=== PATIENT | male | born 1955 | race Hispanic/Latino ===

== ENCOUNTER 2019-04-27 01:45 | Emergency (ER) | payer MEDICARE, OTHER ==
[~2019-04-27 01:45] MED LIST: ENAL20TA PO; LEVO25TA54 PO; LEVO500T2 PO; NIFE20CA PO; OMEP20TA25 PO; ONDA4TAB7 PO
[2019-04-27 02:18] LABS: BASOPHILS % (AUTO) 0.8 % (0.0-5.0); LYMPHOCYTES % (AUTO) 22.6 % (21.0-51.0); MEAN CORPUSCULAR HEMOGLOBIN 32.6 pg (27.0-33.0); MEAN CORPUSCULAR HGB CONC 33.8 g/dL (32.0-36.0); MEAN CORPUSCULAR VOLUME 96.5 fL (79-99); MONOCYTES % (AUTO) 11.7 % (3.0-13.0); NEUTROPHILS % (AUTO) 60.9 % (40.0-77.0); PLATELET COUNT (AUTO) 212 K/uL (130-400); RED BLOOD CELL COUNT(AUTO) 4.45 MIL/uL (4.50-6.20); RED CELL DISTRIBUTION WIDTH 12.4 % (11.0-15.5); WHITE BLOOD COUNT (AUTO) 10.5 K/uL (4.8-10.8)
[2019-04-27] MEDS ORDERED: FAMOTIDINE/PF 20 MG/2 ML VIAL IV ONE (02:24)
[2019-04-27] MEDS ORDERED: ONDANSETRON HCL 4 MG/2 ML VIAL ONE (02:24)
[2019-04-27] MEDS ORDERED: DiphenhydrAMINE HCL 50 MG/ML VIAL ONE (02:24)
[2019-04-27] MEDS ORDERED: SODIUM CHLORIDE 0.9% 1000ML 1,000 ML IV ONE (02:25)
[2019-04-27 02:32] LABS: CREATININE 1.2 mg/dL (0.5-1.5); POTASSIUM 3.9 mmol/L (3.5-5.1)
[2019-04-27 02:36] LABS: BILIRUBIN,TOTAL 0.3 mg/dL (0.2-1.0)
[2019-04-27] MEDS ORDERED: LIDOCAINE HCL 2% VISCOUS 15 ML UDCUP ONE (03:00)
[2019-04-27] MEDS ORDERED: MAG HYDROX/AL HYDROX/SIMETH ES 30 ML SUSP UDCUP ONE (03:00)
== END 2019-04-27 04:00 | disposition home or self-care (01) ==
LOC: EDH 01:45
DX: K21.9 Gastro-esophageal reflux disease without esophagitis (principal); J30.2 Other seasonal allergic rhinitis
CPT/HCPCS: 36415; 80053; 83690; 84484; 85025; 93005; 96374; 96375; 99285; J1200; J2405; J3490; J7030

== ENCOUNTER 2021-04-17 06:48 | Observation (INO) | payer MEDICARE, OTHER ==
[~2021-04-17] VITALS: Ht 162.6 cm; Wt 95.6 kg
[~2021-04-17 06:48] MED LIST changes: -ENAL20TA PO; +ENAL20TA18 PO
[2021-04-17] MEDS ORDERED: FENTANYL CITRATE PF 50 MCG/1 ML 2ML VIAL IVP ONE (08:00)
[2021-04-17] MEDS ORDERED: ONDANSETRON 4MG INJ IVP ONE (08:00)
[2021-04-17] MEDS ORDERED: FAMOTIDINE 20MG VIAL IV ONE (08:00)
[2021-04-17] MEDS ORDERED: 0.9%NACL 1000ML 1,000 ML IV ONE (08:00)
[2021-04-17 08:05] LABS: BASOPHILS % (AUTO) 0.4 % (0.0-5.0); EOSINOPHILS % (AUTO) 1.3 % (0.0-8.0); HEMATOCRIT 44.6 % (42-54); LYMPHOCYTES % (AUTO) 16.6 % (21.0-51.0); MEAN CORPUSCULAR HEMOGLOBIN 31.7 pg (27.0-33.0); MEAN CORPUSCULAR HGB CONC 33.9 g/dL (32.0-36.0); MEAN CORPUSCULAR VOLUME 93.5 fL (79-99); MONOCYTES % (AUTO) 10.7 % (3.0-13.0); NEUTROPHILS % (AUTO) 70.8 % (40.0-77.0); PLATELET COUNT (AUTO) 228 K/uL (130-400); RED BLOOD CELL COUNT(AUTO) 4.77 MIL/uL (4.50-6.20); RED CELL DISTRIBUTION WIDTH 12.7 % (11.0-15.5); WHITE BLOOD COUNT (AUTO) 8.5 K/uL (4.8-10.8)
[2021-04-17 08:21] LABS: APPEARANCE,URINE Clear (CLEAR); BILIRUBIN,URINE Small (NEGATIVE); COLOR,URINE Dark Yellow (YELLOW); GLUCOSE, URINE (UA) Negative (NEGATIVE); KETONES,URINE Trace mg/dL (NEGATIVE); LEUKOCYTE ESTERASE ,URINE Trace (NEGATIVE); NITRATE,URINE Negative (NEGATIVE); OCCULT BLOOD,URINE Negative (NEGATIVE); PROTEIN,URINE POS 1+ mg/dL (NEGATIVE)
[2021-04-17 08:22] LABS: CREATININE 1.3 mg/dL (0.5-1.5); POTASSIUM 3.6 mmol/L (3.5-5.1)
[2021-04-17 08:32] LABS: ALBUMIN 3.8 g/dL (3.5-5.0); BILIRUBIN,TOTAL 0.5 mg/dL (0.2-1.0); TOTAL PROTEIN, SERUM 7.7 g/dL (6.0-8.3)
[2021-04-17 08:33] LABS: RBC,URINE None Seen /HPF (0-1)
[2021-04-17 08:34] LABS: BACTERIA,URINE Rare /HPF (None Seen); MUCUS,URINE Moderate LPF (None Seen); SQUAMOUS EPITHELIAL CELL,UR 0-2 /HPF (0-2); WBC,URINE 0-1 /HPF (0-1)
[2021-04-17] MEDS ORDERED: LORAZEPAM 2 MG/ML 1 ML VIAL ONE (09:39)
[2021-04-17] MEDS ORDERED: ACETAMINOPHEN 325 MG TAB PO PRN ×2 (10:00)
[2021-04-17] MEDS ORDERED: LACTULOSE 20 GM/30 ML UDCUP PO PRN (10:00)
[2021-04-17] MEDS ORDERED: ONDANSETRON 4MG INJ IV PRN (10:00)
[2021-04-17] MEDS: 0.9%NACL 1000ML 1,000 ML IV SCH ×2 (10:09→20:59)
[2021-04-17] MEDS: INSULIN HUMULIN R 100 UNIT/ML 3ML SQ SCH ×2 (12:00→18:00)
[2021-04-17] MEDS ORDERED: MORPHINE 2 MG SYG ONE (15:21)
[2021-04-17] MEDS ORDERED: MORPHINE 2 MG SYG IVP PRN (15:32)
[2021-04-17] MEDS ORDERED: OMEP40CA21 PO (15:43)
[2021-04-17] MEDS ORDERED: LEVO50TA11 PO (15:47)
[2021-04-17] MEDS ORDERED: ATOR10 PO (15:49)
[2021-04-17] MEDS ORDERED: TAMS-1 PO (15:54)
[2021-04-17] MEDS ORDERED: ASPI-1114 PO (15:56)
[2021-04-17] MEDS ORDERED: DIATR MEGLU/DIATRIZOATE SODIUM 30 ML BOTTLE ONE ×2 (16:54→18:22)
[2021-04-17 19:35] VITALS: BP 143/74
[2021-04-17] MEDS ORDERED: LORAZEPAM 2 MG/ML 1 ML VIAL IVP PRN (22:30)
[2021-04-18] VITALS: BP 146/83
[2021-04-18 04:00] VITALS: BP 136/68
[2021-04-18 04:39] LABS: BASOPHILS % (AUTO) 0.3 % (0.0-5.0); HEMATOCRIT 39.6 % (42-54); LYMPHOCYTES % (AUTO) 19.9 % (21.0-51.0); MEAN CORPUSCULAR HEMOGLOBIN 32.1 pg (27.0-33.0); MEAN CORPUSCULAR HGB CONC 33.3 g/dL (32.0-36.0); MEAN CORPUSCULAR VOLUME 96.4 fL (79-99); MONOCYTES % (AUTO) 12.9 % (3.0-13.0); NEUTROPHILS % (AUTO) 65.3 % (40.0-77.0); PLATELET COUNT (AUTO) 212 K/uL (130-400); RED BLOOD CELL COUNT(AUTO) 4.11 MIL/uL (4.50-6.20); WHITE BLOOD COUNT (AUTO) 8.9 K/uL (4.8-10.8)
[2021-04-18 04:53] LABS: CREATININE 1.4 mg/dL (0.5-1.5); POTASSIUM 4.2 mmol/L (3.5-5.1)
[2021-04-18] MEDS: INSULIN HUMULIN R 100 UNIT/ML 3ML SQ SCH ×4 (05:05→18:00)
[2021-04-18 07:39] VITALS: BP 113/68
[2021-04-18] MEDS: PANTOPRAZOLE 40 MG/VIAL IVP SCH (09:48)
[2021-04-18 10:57] VITALS: BP 144/73
[2021-04-18] MEDS: 0.9%NACL 1000ML 1,000 ML IV SCH ×2 (16:00→20:11)
[2021-04-18 16:01] VITALS: BP 149/84
[2021-04-18 20:00] VITALS: BP 144/78
[2021-04-19] VITALS: BP 159/78
[2021-04-19] MEDS: 0.9%NACL 1000ML 1,000 ML IV SCH (02:24)
[2021-04-19 04:00] VITALS: BP 137/73
[2021-04-19] MEDS: INSULIN HUMULIN R 100 UNIT/ML 3ML SQ SCH ×3 (05:24→12:00)
[2021-04-19 07:30] VITALS: BP 139/86
[2021-04-19] MEDS: PANTOPRAZOLE 40 MG/VIAL IVP SCH (09:58)
[2021-04-19 11:00] VITALS: BP 151/76
[2021-04-19] MEDS ORDERED: PANTOPRAZOLE 40 MG TAB DR PO PRN (13:00)
[2021-04-19] MEDS ORDERED: ASPIRIN 81MG CHEW TAB PO SCH (21:00)
[2021-04-19] MEDS ORDERED: ATORVASTATIN 10 MG TABLET PO SCH (21:00)
[2021-04-20] MEDS ORDERED: LEVOTHYROXINE 50 MCG TABLET PO SCH (06:30)
[2021-04-20] MEDS ORDERED: ENALAPRIL MALEATE 10 MG TABLET PO SCH (09:00)
[2021-04-20] MEDS ORDERED: NIFEDIPINE ER 30 MG TAB PO SCH (09:00)
[2021-04-20] MEDS ORDERED: TAMSULOSIN HCL 0.4 MG CAP.ER.24H PO SCH (12:00)
== END 2021-04-19 17:00 | disposition home or self-care (01) ==
LOC: EDH 06:53 → EDHIP 09:36 → 3CH 19:40
PROVIDERS: ADMIT Family Medicine; ATTEND Family Medicine
DX: K56.600 Partial intestinal obstruction, unspecified as to cause (principal); A41.9 Sepsis, unspecified organism; I10 Essential (primary) hypertension; E11.9 Type 2 diabetes mellitus without complications; E03.9 Hypothyroidism, unspecified; K21.9 Gastro-esophageal reflux disease without esophagitis; Z87.19 Personal history of other diseases of the digestive system; Z79.82 Long term (current) use of aspirin
CPT/HCPCS: 36415 ×2; 74176; 74250; 80048; 80053; 81001; 82550; 82948 ×9; 83690; 84484; 85025 ×2; 87046; 87324; 93005; 96361 ×3; 96374; 96375 ×2; 96376; 99285; C9113 ×2; G0378 ×55; J2060; J2405; J3010; J3490; J7030 ×4; Q9963 ×2

== ENCOUNTER 2022-04-08 06:50 | Day surgery (SDC) | payer MEDICARE ==
[2022-04-07 11:30] LABS: BASOPHILS % (AUTO) 0.8 % (0.0-5.0); EOSINOPHILS % (AUTO) 3.6 % (0.0-8.0); HEMATOCRIT 38.5 % (42-54); LYMPHOCYTES % (AUTO) 29.9 % (21.0-51.0); MEAN CORPUSCULAR HEMOGLOBIN 32.8 pg (27.0-33.0); MEAN CORPUSCULAR HGB CONC 34.3 g/dL (32.0-36.0); MEAN CORPUSCULAR VOLUME 95.8 fL (79-99); MONOCYTES % (AUTO) 10.7 % (3.0-13.0); NEUTROPHILS % (AUTO) 54.5 % (40.0-77.0); PLATELET COUNT (AUTO) 249 K/uL (130-400); RED BLOOD CELL COUNT(AUTO) 4.02 MIL/uL (4.50-6.20); RED CELL DISTRIBUTION WIDTH 12.8 % (11.0-15.5); WHITE BLOOD COUNT (AUTO) 6.4 K/uL (4.8-10.8)
[2022-04-07 11:46] LABS: ALBUMIN 3.6 g/dL (3.5-5.0); CREATININE 1.1 mg/dL (0.5-1.5); POTASSIUM 3.7 mmol/L (3.5-5.1); TOTAL PROTEIN, SERUM 7.3 g/dL (6.0-8.3)
[2022-04-08] VITALS (13 sets, daily range): BP systolic 77–115; BP diastolic 50–75
[~2022-04-08] VITALS: Ht 165.1 cm; Wt 93.0 kg
[~2022-04-08 06:50] MED LIST changes: +ASPI-1114 PO; +ATOR10 PO; +ESCI20TA38 PO; -LEVO25TA54 PO; -LEVO500T2 PO; +LEVO50TA11 PO; -OMEP20TA25 PO; +OMEP40CA21 PO; -ONDA4TAB7 PO; +TAMS-1 PO
[2022-04-08] MEDS ORDERED: 0.9%NACL 1000ML 1,000 ML IV ONE (07:15)
[2022-04-08] MEDS ORDERED: PROPOFOL 10 MG/ML 20ML VIAL IV ONE ×2 (07:41→07:42)
== END 2022-04-08 09:00 | disposition home or self-care (01) ==
LOC: DAH 06:50
PROVIDERS: ATTEND Student in an Organized Health Care Education/Training Program
DX: Z12.11 Encounter for screening for malignant neoplasm of colon (principal); K63.5 Polyp of colon; K56.52 Intestinal adhesions [bands] with complete obstruction; I10 Essential (primary) hypertension; E78.5 Hyperlipidemia, unspecified; E66.3 Overweight; F41.9 Anxiety disorder, unspecified; Z83.3 Family history of diabetes mellitus; Z82.49 Family history of ischemic heart disease and other diseases of the circulatory system; Z68.42 Body mass index [BMI] 45.0-49.9, adult
CPT/HCPCS: 87426; 80053; 85025; 36415; 93005; 45385; J7030 ×2; J2704; A4620; A4215 ×2; A4223; A4222; A4221; A4663; A4606

== ENCOUNTER 2023-12-17 04:20 | Emergency (ER) | payer MEDICARE ==
[~2023-12-17] VITALS: Ht 165.1 cm; Wt 99.8 kg
[~2023-12-17 04:20] MED LIST changes: +ENAL-91 PO; -ENAL20TA18 PO
[2023-12-17 04:30] VITALS: BP 145/79; PULSE 67; RESP 18; O2SAT 100
[2023-12-17 04:46] LABS: BASOPHILS # (AUTO) 0.04 K/uL (0.00-0.20); BASOPHILS % (AUTO) 0.4 % (0.0-5.0); EOSINOPHILS # (AUTO) 0.16 K/uL (0.00-0.70); EOSINOPHILS % (AUTO) 1.7 % (0.0-8.0); HEMATOCRIT 41.6 % (42-54); IMMATURE GRANULOCYTE ABSOLUTE 0.04 K/uL (0-1); LYMPHOCYTES % (AUTO) 31.8 % (21.0-51.0); MEAN CORPUSCULAR HEMOGLOBIN 32.6 pg (27.0-33.0); MEAN CORPUSCULAR HGB CONC 34.1 g/dL (32.0-36.0); MEAN CORPUSCULAR VOLUME 95.4 fL (79-99); MONOCYTES # (AUTO) 1.1 K/uL (0.1-1.0); MONOCYTES % (AUTO) 11.6 % (3.0-13.0); NEUTROPHILS # (AUTO) 5.1 K/uL (1.8-7.7); NEUTROPHILS % (AUTO) 54.1 % (40.0-77.0); PLATELET COUNT (AUTO) 226 K/uL (130-400); RED BLOOD CELL COUNT(AUTO) 4.36 MIL/uL (4.50-6.20); RED CELL DISTRIBUTION WIDTH 12.7 % (11.0-15.5); WHITE BLOOD COUNT (AUTO) 9.4 K/uL (4.8-10.8)
[2023-12-17] MEDS ORDERED: CLIN-141 PO (04:59)
== END 2023-12-17 05:17 | disposition home or self-care (01) ==
LOC: EDH 04:20
DX: K05.10 Chronic gingivitis, plaque induced (principal); E03.9 Hypothyroidism, unspecified; E11.9 Type 2 diabetes mellitus without complications; E78.00 Pure hypercholesterolemia, unspecified; I10 Essential (primary) hypertension; K21.9 Gastro-esophageal reflux disease without esophagitis; Z79.82 Long term (current) use of aspirin; Z79.899 Other long term (current) drug therapy
CPT/HCPCS: 36415; 85025; 87880